=== PATIENT | female | born 1930 | race Caucasian/White ===

== ENCOUNTER 2016-10-27 04:38 | Emergency (ER) | payer BC ==
--- NOTE | ~2016-10-27 | CT71 ---
[facility] A Service of [facility] RADIOLOGY TEXT RESULTS PATIENT: MACKENZIE REYNA LOCATION: SED : 31 UNIT #: [id number] AGE: [address]: Mikael Snider MD SEX: F ORDER DR: [id number] [place] [id number] E MR#: [id number] Acc #: [id number] NAME: MACKENZIE REYNA : 1930 SEX: F STUDY DATE/TIME: 10/27/2016 4:59 UNIT: SED ROOM: STUDY DESCRIPTION: CT Head Wo Contrast Attending Physician: Mikael Snider M.D. Ordering Physician: Mikael Snider M.D. Primary Care Physician: Kiran Briseno M.D. MEDICAL IMAGING REPORT This report is preliminary unless electronic signature is present. EXAM Noncontrast CT head, 10/27/2016 HISTORY 86-year-old female who fainted yesterday. Persistent dizziness since that time. COMPARISON Noncontrast CT head, 02/26/[address] exam was performed with one or more of the following radiation dose reduction techniques: automatic exposure control, adjustment of mA and/or kV according to patient size, and iterative reconstruction. FINDINGS Mild chronic microvascular disease changes are present with chronic appearing lacunar infarcts in the basal ganglia and left external capsule. There is mild generalized parenchymal atrophy. No acute intracranial hemorrhage, mass lesion, mass effect or midline shift is seen and no evidence of acute or evolving infarct. Major paranasal sinuses are clear. 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 Mild atrophy. No acute intracranial findings. Dictated by... Becca Arora M.D. THIS IS AN ELECTRONICALLY VERIFIED REPORT Becca Arora M.D. at 10/27/2016 10:02 PM OLGA/gisselle [facility] A Service [facility] RADIOLOGY TEXT RESULTS PATIENT: MACKENZIE REYNA LOCATION: SED : 31 UNIT #: [id number] AGE: [address]: Mikael Snider MD SEX: F ORDER DR: TD: 10/27/2016 10:09 JOB #: [id number] MEDICAL IMAGING REPORT Page 1 of 1
--- NOTE | ~2016-10-27 | EKG ---
PATIENT: MACKENZIE REYNA UNIT #: [id number] Ventricular Rate: 56 BPM Atrial Rate: 56 BPM P-R Interval: 144 ms QRS Duration: 66 ms Q-T Interval: 426 ms QTC Calculation(Bezet): 411 ms P Aurora: 29 degrees Calculated R Aurora: 50 degrees Calculated T Aurora: 58 degrees Diagnosis Line: Sinus bradycardia Diagnosis Line: Otherwise normal ECG Diagnosis Line: When compared with ECG of 26-FEB-2015 08:50, Diagnosis Line: No significant change was found Diagnosis Line: Confirmed by DAVIDSON GAMEZ MD ([id number]) on 10/30/2016 Diagnosis Line: 9:25:43 AM INTERPRETING MD: FRANCO BOWENS
[~2016-10-27 04:38] MED LIST: ACETAMINOPHEN PO; ADVIL200 M2 PO; ARICEPT PO; ASPIRIN PO; ASPIRIN81 M1 PO; BUSPAR15 M1 PO; CENTRUM SILVER PO; ESCITALOPRAM OX20 MG PO; LEXAPRO PO; MIRAPEX; MIRAPEX0.25 MG PO; MIRAPEX0.75 MG PO; MULTI VITAMIN1 EACH PO; ST. JOSEPH ASPI81 M2 PO; VIT E PO; VITAMIN D400 UNI1 PO; [UNRECOGNIZED DRUG - OTHER]; [UNRECOGNIZED DRUG - OTHER]
[2016-10-27 05:11] LABS: POC - CKMB 2.8 ng/mL (0.0-7.9); POC - TROPONIN <0.05 ng/mL (<=0.05)
[2016-10-27 05:30] LABS: BASOPHIL# 0.1 X10e3 (0-0.3); BASOPHIL% 1.3 % (0-2.5); DIFF IND NO; EOSINOPHIL# 0.2 X10e3 (0-0.7); EOSINOPHIL% 4.7 % (0.0-7.0); HEMATOCRIT 33.2 % (35.0-45.0); LYMPHOCYTE# 1.7 X10e3 (1.0-3.5); LYMPHOCYTE% 36.2 % (17.0-45.0); MEAN CORPUSCULAR HEMOGLOBIN 30.6 PG (28-34); MEAN CORPUSCULAR HGB CONC 33.2 g/dL (30-36); MONOCYTE# 0.4 X10e3 (0-1.0); MONOCYTE% 8.4 % (3.0-12.0); NEUTROPHIL# 2.3 X10e3 (1.5-7.1); NEUTROPHIL% 49.4 % (40-75); PLATELET COUNT 180 X10e3 (140-420); RED BLOOD COUNT 3.61 X10e (3.90-5.30); RED CELL DISTRIBUTION WIDTH 12.6 % (11.0-15.5); WHITE BLOOD COUNT 4.6 X10e3 (4.0-10.5)
[2016-10-27 05:41] LABS: BUN/CREATININE RATIO 17.77; CALCIUM SERUM 8.8 mg/dL (8.4-10.2); CREATININE SERUM 0.9 mg/dL (0.6-1.4); GLOM FILT RATE Estimated 58.3 mL/min (>60); POTASSIUM 3.8 mmol/L (3.5-5.1)
== END 2016-10-27 06:11 | disposition home or self-care (01) ==
LOC: SED 04:38
PROVIDERS: Emergency Medicine
DX: R42 Dizziness and giddiness (principal); Z79.899 Other long term (current) drug therapy
CPT/HCPCS: 70450; 80048; 82553; 84484; 85025; 93005; 99284

== ENCOUNTER → 2017-03-11 | Outpatient (CLI) | payer BC ==
--- NOTE | ~2017-03-11 | US85 ---
[facility] A Service of [facility] & [facility] RADIOLOGY TEXT RESULTS PATIENT: MACKENZIE REYNA LOCATION: SNIV : 31 UNIT #: [id number] AGE: [address]: Kiran Briseno MD SEX: F ORDER DR: [id number] [address] [id number] O MR#: [id number] Acc #: [id number] NAME: MACKENZIE REYNA : 1930 SEX: F STUDY DATE/TIME: 03/11/2017 10:51 UNIT: SNIV ROOM: STUDY DESCRIPTION: [facility] or [facility] St[facility] Attending Physician: Kiran Briseno M.D. Referring Physician: Kiran Briseno M.D. Ordering Physician: Kiran Briseno M.D. Primary Care Physician: Kiran Briseno M.D. MEDICAL IMAGING REPORT This report is preliminary unless electronic signature is present. DATE OF EXAM 03/11/2017 REASON FOR EXAM Left leg swelling. EXAM Left lower extremity venous Doppler. FINDINGS The left common femoral vein, femoral vein, popliteal vein, and tibial veins demonstrate patency and compressibility. There is phasic and spontaneous flow with respiration and augmentation. Proximal and distal greater saphenous vein is patent and compressible. IMPRESSION No evidence of left lower extremity deep vein thrombosis. Dictated by... Steve Mehta M.D. THIS IS AN ELECTRONICALLY VERIFIED REPORT Steve Mehta M.D. at 03/18/2017 4:51 PM Anabell TD: 03/11/2017 21:34 JOB #: [id number] MEDICAL IMAGING REPORT Page 1 of 1
== END | disposition home or self-care (01) ==
LOC: SNIV 10:38
DX: M79.89 Other specified soft tissue disorders (principal)
CPT/HCPCS: 93971